=== PATIENT | male | born 1975 | race African-American/Black ===

== ENCOUNTER 2016-10-23 15:23 | Emergency (ER) | payer BC ==
[~2016-10-23] VITALS: Ht 170.2 cm; Wt 88.5 kg
--- NOTE | ~2016-10-23 | EKG ---
[address] [place] [place] [address] ELECTROCARDIOGRAM REPORT Name: CHAYITOEDNA ARAUZ Room #: [facility]#: [id number] Admission: 10/23/16 Attend Phys: Discharge: 10/23/16 Date of : 75 Report #: [id number] THIS REPORT FOR: //name// [facility] ED Test Date: 2016-10-23 Test Time: 15:50:44 Pat Name: EDNA STRATTON Department: Room: Gender: M Transcription Specialist: Dora RYAN : 1975 Requested By: Raymon Boucher Order Number: [id number] MD: Dax Vela Measurements Intervals [place] Rate: 69 P: 31 NV: 190 QRS: 15 QRSD: 88 T: 29 QT: 362 QTc: 388 Interpretive Statements Sinus rhythm No significant abnormality No previous ECG available for comparison Electronically Signed On 10-24-2016 7:54:07 CDT by Dax Vela [email or web address] <ELECTRONICALLY SIGNED> By: Dax Vela MD, [facility] 10/24/16 0754 1550 1550 Dax Vela MD, FACC /EPI
[2016-10-23] MEDS ORDERED: PEPCID20 MG PO (15:58)
[2016-10-23 16:03] LABS: ABSOLUTE NEUTROPHILS 2.9 thou/uL (1.4-8.2); BASOPHILS 0.6 % (0.0-2.0); EOSINOPHILS 0.9 % (0.0-3.0); HEMATOCRIT 43.4 % (42.0-52.0); HEMOGLOBIN 15.2 gm/dL (14.0-18.0); LYMPHOCYTES 31.5 % (24.0-44.0); MCH 31.4 pg (26.0-34.0); MCHC 34.9 g/dL (28.0-37.0); MCV 89.8 fL (80.0-100.0); MONOCYTES 8.5 % (1.0-8.0); PLATELET COUNT 219 thou/uL (150-400); POLYS 58.5 % (36.0-66.0); RBC 4.83 mil/uL (4.50-6.00); RDW 13.6 % (10.5-14.5)
[2016-10-23 16:07] LABS: ANION GAP 6 mmol/L (7-16); BUN 16 mg/dL (7-18); CALCIUM 9.1 mg/dL (8.5-10.1); CHLORIDE 105 mmol/L (98-107); CO2 31 mmol/L (21-32); CREATININE 1.2 mg/dL (0.7-1.3); GLUCOSE 84 mg/dL (74-106); SODIUM 142 mmol/L (136-145)
[2016-10-23 16:08] LABS: MANUAL DIFF NO; POTASSIUM 4.2 mmol/L (3.5-5.1)
[2016-10-23 16:15] LABS: TROPONIN-I < 0.04 ng/mL (<0.04-0.07)
[2016-10-23 17:26] VITALS: BP 113/78
== END 2016-10-23 17:27 | disposition home or self-care (01) ==
LOC: ER 15:23
PROVIDERS: Physician Assistant
DX: R20.2 Paresthesia of skin (principal); R53.1 Weakness; F10.99 Alcohol use, unspecified with unspecified alcohol-induced disorder